=== PATIENT | male | born 1955 | race Caucasian/White ===

== ENCOUNTER 2019-02-22 06:40 | Inpatient (IN) ==
[2019-02-22] MEDS ORDERED: DOXYCYCLINE 100 MG in NS 250 ML IV ONE (07:19)
[2019-02-22] MEDS ORDERED: CLINDAMYCIN 600 MG/NS 600 MG/50 ML IVPB IV ONE (07:19)
--- NOTE | 2019-02-22 07:25 | PROVIDER DOCUMENTATION ---
HPI-Animal/Snake Bite Injury - General Chief Complaint: Animal Bite Stated Complaint: L-HAND CAT BITE Time Seen by Provider: 02/22/19 07:10 Source: patient Allergies/Adverse Reactions: Patient Allergies Allergy/AdvReac Type Severity Reaction Status Date / Time codeine Allergy NAUSEA/VOMI Verified 02/22/19 08:45 TING morphine Allergy FLUSHING Verified 02/22/19 08:45 Penicillins Allergy ANAPHYLAXIS Verified 02/22/19 08:45 Home Medications: Home Medication List Medication Instructions Recorded Confirmed Last Taken Type Fexofenadine [Jing] 180 mg PO DAILY 04/26/17 02/22/19 05/01/17 08:30 History Fluoxetine HCl [Prozac] 20 mg PO QAM 04/26/17 02/22/19 05/01/17 08:30 History Metformin [Glucophage] 500 mg PO BID CC 04/26/17 02/22/19 04/30/17 20:30 History Aspirin 81 mg PO QHS 02/22/19 02/22/19 Unknown History Cyanocobalamin/Folic Acid [Vitamin 1 ea PO DAILY 02/22/19 02/22/19 Unknown History [id number] Acid Tablet] Mv-Mn/Iron/Folic Acid/Herb 190 1 ea PO DAILY 02/22/19 02/22/19 Unknown History [Vitamin D3 Complete Caplet] - History of Present Illness-Bite Injuries Nature of Presenting Problem: 64 yo, NIDDM male w/ last tet immuniz 7 yr ago, presents w/ < 24 hrs-old cat b ite to L long digit. pw on radial aspect of digit dorsally, and ulnar aspect of the DIP jx on flexor surface. pt reports prior injection for release of trigger-finger to this digit. Review of Systems - Adult - REVIEW OF SYSTEMS - ADULT Constitutional: reports: no symptoms reported Eyes: reports: no symptoms reported Ears, Nose, Mouth & Throat: reports: no symptoms reported Cardiovascular: reports: no symptoms reported Respiratory: reports: no symptoms reported Gastrointestinal: reports: no symptoms reported Genitourinary: reports: no symptoms reported Musculoskeletal: reports: see HPI Integumentary: reports: no symptoms reported Neurological: reports: no symptoms reported Psychiatric: reports: no symptoms reported Endocrine: reports: no symptoms reported Hematologic/Lymphatic: reports: no symptoms reported Allergic/Immunologic: reports: no symptoms reported All Other Systems: Reviewed and Negative Past History - Adult - PAST MEDICAL HISTORY-ADULT Review of Records: reports: Old Records Reviewed Physical Exam-General - PHYSICAL EXAM-ADULT Initial Vital Signs Reviewed: Yes - CONSTITUTIONAL General Appearance: appears well, alert, mild distress - EYES Eyes: PERRL/EOMI, pink conjunctivae - HEAD, EARS, NOSE, MOUTH & THROAT HENMT: normocephalic/atraumatic, moist mucous membranes, normal ENT inspection - NECK Neck: supple - RESPIRATORY Respiratory: lungs clear - CARDIOVASCULAR Cardiovascular: normal peripheral pulses, regular rate, rhythm - GASTROINTESTINAL (ABDOMEN) Abdominal Exam: non tender, soft - LYMPHATIC Lymphatic: no adenopathy - MUSCULOSKELETAL Back Exam: no CVA tenderness Extremity: other (pt already has early fusiform STS and erythema, w/ intolerance to passive extension at the DIP jx sugg'x of tenosynovitis and/or joint space involvement (will discuss w/ Ortho).) Peripheral Pulses: radial (R): 2+, radial (L): 2+ - SKIN Integumentary: normal color, normal turgor, warm/dry. 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, grossly normal - PSYCHIATRIC Psych/Mental Status: normal mood/affect, normal thought content Progress - PLAN OF CARE/RESULTS Progress/Plan/Lab Results: Vital Signs - 8 hr 02/22/19 06:45 02/22/19 08:21 Temperature 97.6 F Pulse Rate 93 H Respiratory Rate 20 Blood Pressure 140/101 130/87 O2 Sat by Pulse Oximetry 99 97 Laboratory Results - last 24 hr 02/22/19 02/22/19 02/22/19 07:43 07:43 07:43 WBC 13.74 H RBC 5.62 Hgb 16.1 Hct 50.1 MCV 89.1 MCH 28.6 MCHC 32.1 L RDW Std Deviation 13.3 Plt Count 215 MPV 11.7 H Immature Gran % (Auto) 0.2 Neut % (Auto) 69.0 Lymph % (Auto) 19.7 L [place] % (Auto) 8.9 Eos % (Auto) 1.8 Baso % (Auto) 0.4 Immature Gran # (Auto) 0.03 Neut # (Auto) 9.47 H Lymph # (Auto) 2.71 [place] # (Auto) 1.22 H Eos # (Auto) 0.25 Baso # (Auto) 0.06 PT 12.7 INR 0.95 PTT (Actin FS) 28.3 Sodium 136 Potassium 4.5 Chloride 100 Carbon Dioxide 20 L Anion Gap 16 BUN 23 H Creatinine 1.0 Estimated GFR/1.73 m2 > 60 BUN/Creatinine Ratio 23 Glucose 121 H Calculated Osmolality 277 Calcium 8.9 Total Bilirubin 0.73 AST 24 ALT 21 Alkaline Phosphatase 74 Total Protein 7.2 Albumin 4.1 Globulin 3.1 Albumin/Globulin Ratio 1.3 Orders Category Date Time Status NPO Diet 02/22/19 09:09 Active HAND COMPLETE LEFT [RAD] Stat Exams 02/22/19 07:14 Completed CBC WITH DIFF [HEME] Stat Lab 02/22/19 07:43 Completed COMPREHENSIVE METABOLIC PANEL [CHEM] Stat Lab 02/22/19 07:43 Completed PROTIME WITH INR [COAG] Stat Lab 02/22/19 07:43 Completed PTT [COAG] Stat Lab 02/22/19 07:43 Completed Clindamycin 600 mg/Ns Med 02/22/19 07:19 Discontinued 600 mg in 50 ml IV NOW Doxycycline 100 mg Med 02/22/19 07:19 Active 0.9% Sodium Chloride Inj [Ns] 250 ml IV NOW Result Diagrams: 02/22/19 07:43 02/22/19 07:43 - REASSESSMENT Reassessment #1 Time Reassessed: 08:40 Status: unchanged (imaging shows no complication: Dr. Elizalde (Ortho) paged) - CONSULTS/PCP/HOSPITALIST Notification #1 *Consult/PCP/Hospitalist*: Tonio Time Discussed: 09:05 Consult Disposition: Admit (will consult, re Hospitalist to admit) #2 Consult: Nicki (Hospitalist) Time Discussed: 09:10 Consult Disposition: Admit Departure - Departure Date of Disposition Decision: 02/22/19 Time of Disposition Decision: 09:10 DIAGNOSIS: Cat bite of middle finger, Tenosynovitis Disposition: ADMITTED INPATIENT 09 Certified Medical Emergency: Emergent Condition: Stable Referrals and Follow-Ups: Cesar Reed MD [Primary Care Provider] - - Critical Care Note This patient required my direct & personal management of CC.: No Attestation - Physician/ EMILY Attestation The physician spent face to face time with patient:: Yes Advanced Practice Provider documentation review:: Supervising physician onsite and consulted in the evaluation and care of this patient. The physician did have a face to face encounter with the patient.
--- NOTE | 2019-02-22 07:38 | Diag Imaging Result Doc PS360 ---
EXAM: HAND COMPLETE LEFT 02/22/2019 HISTORY: cat bite L long digit TECHNIQUE: Left hand three views COMMENT: There is no evidence of fracture or dislocation periosteal reaction or foreign body. IMPRESSION: No acute bony abnormality. Electronically signed by Jacques Stark 02/22/2019 7:35 AM
[2019-02-22 08:01] LABS: BASO# 0.06 X1000 (0.0-0.2); BASO% 0.4 % (0.0-0.8); EOS# 0.25 X1000 (0.0-0.7); EOS% 1.8 % (0.0-10.0); HEMATOCRIT 50.1 % (42.0-52.0); HEMOGLOBIN 16.1 g/dL (14.0-18.0); IMM GRAN# 0.03 X1000 (0.0-0.04); IMM GRAN% 0.2 % (0.0-0.5); LYMPH# 2.71 X1000 (1.2-3.4); LYMPH% 19.7 % (20.5-51.1); MCH 28.6 PG (27-31); MCHC 32.1 g/dL (33-37); MCV 89.1 FL (81-99); MONO# 1.22 X1000 (0.11-0.59); MONO% 8.9 % (1.7-9.3); MPV 11.7 FL (7.4-10.4); NEUT# 9.47 X1000 (1.4-6.5); PLT 215 X1000 (130-400); RBC 5.62 XMIL (4.7-6.1); RDW 13.3 % (11.5-14.5); WBC 13.74 X1000 (4.8-10.8)
[2019-02-22 08:10] LABS: INR 0.95; PROTIME 12.7 Seconds (11.0-16.0)
[2019-02-22 08:11] LABS: PTT 28.3 Seconds (22.3-41.8)
[2019-02-22 08:24] LABS: AGAP 16; ALB/GLOB RATIO 1.3; ALBUMIN 4.1 g/dL (3.5-5.0); ALKALINE PHOSPHATASE 74 U/L (32-122); BUN 23 mg/dL (8-22); CALCIUM 8.9 mg/dL (8.8-10.2); CHLORIDE 100 mmol/L (98-107); COSMO 277; ESTIMATED GFR > 60; GLUCOSE 121 mg/dL (70-104); GOT 24 U/L (10-34); GPT 21 U/L (10-44); POTASSIUM 4.5 mmol/L (3.5-5.1); SODIUM 136 mmol/L (136-145); TCO2 20 mmol/L (25-35); TOTAL BILIRUBIN 0.73 mg/dL (0.20-1.00); TOTAL PROTEIN 7.2 g/dL (6.3-8.3)
[2019-02-22] MEDS ORDERED: ZOFRAN IV PRN (10:09)
[2019-02-22] MEDS: LEVAQUIN 500 MG/D5W 500 MG/100 ML IVPB IV SCH (13:16)
[2019-02-22] MEDS ORDERED: XYLOCAINE 1% INJ ONE (14:09)
[2019-02-22] MEDS ORDERED: DEMEROL IV ONE (14:23)
[2019-02-22] MEDS: HUMALOG SUBQ SCH ×3 (14:54→22:13)
[2019-02-22] MEDS: CLINDAMYCIN 600 MG/D5W 600 MG/50 ML IVPB IV SCH (14:58)
[2019-02-22] MEDS: NS 1,000 ML IV SCH (15:16)
--- NOTE | 2019-02-22 15:48 | HISTORY AND PHYSICAL ---
PRIMARY CARE PROVIDER: Dr. Reed. CHIEF COMPLAINT: Cat bite. HISTORY OF PRESENT ILLNESS: Mr. Gonsales is a 64-year-old gentleman who carries a past medical history of diabetes mellitus, depression, BPH, allergic rhinitis, who reports yesterday he was bitten by a cat on his left middle digit. He has some swelling and erythema and it is hard for him to bend that finger, questionable tenosynovitis in the possible joint space. The ED physician discussed this with Dr. Elizalde. We will place him on antibiotics and get orthopedics opinion. He reports no fever, no chills. No chest pain. No shortness of breath. No palpitations. No nausea, vomiting, diarrhea or symptoms. PAST MEDICAL HISTORY: Per HPI. PAST SURGICAL HISTORY: TURP, sinus surgery. Colonoscopy. ALLERGIES: Codeine, morphine and penicillin. FAMILY HISTORY: Positive for prostate cancer in father, coronary disease and hypertension. SOCIAL HISTORY: No alcohol, tobacco, or illicit drug use. PHYSICAL EXAMINATION: VITAL SIGNS: Temperature is 98.8 degrees, heart rate 70, respirations 18, blood pressure 120/84. O2 is 98% on room air. GENERAL: Mr. Gonsales is a pleasant 64-year-old gentleman who is sitting up in the bed in no acute distress. He does have some swelling to his left middle digit with some erythema. HEENT: Atraumatic, normocephalic. PERRL. NECK: Supple. Trachea midline. CARDIOVASCULAR: S1, S2 appreciated. No murmurs, gallops, rubs noted. RESPIRATORY: Lung sounds clear bilaterally. GASTROINTESTINAL: Abdomen soft, nontender, nondistended. Positive bowel sounds 4 quads. EXTREMITIES: Negative for edema. NEUROLOGIC: No focal deficits noted. DIAGNOSTIC DATA: Left hand x-ray showed no acute bone abnormality. LABORATORY DATA: White count 13, hemoglobin and hematocrit 16 and 50, platelet count is 215,000. Chemistry: Sodium 136, potassium 4.5, BUN 23, creatinine 1, blood glucose is 121. ASSESSMENT AND PLAN: 1. Left middle finger infection secondary to cat bite. Questionable tenosynovitis. The patient has been placed on antibiotics. We will continue with clindamycin and Levaquin. He will be followed up with orthopedic consult. 2. Diabetes mellitus. Continue on home regimen, sliding scale and pattern blood sugars. 3. Depression. Continue home regimen. 4. Benign prostatic hypertrophy. Continue home medications. 5. Worsened rhinitis. Continue allergy medications. 6. Further recommendation to follow physician evaluation, laboratory and diagnostic data. Dictated by LISA Cook for Grzegorz Patrick MD cc: MD Daquan Llanos MD left 3rd finger with small puncture wounds on dorsal and ventral surfaces consistent with his reported history of a cat bite. mild to moderate swelling. slightly limited flexion and extension of the distal joints. moderate pain on extension. no palpable fluid collection. we'll place him on antibiotics. if he improves, then he may not have to have surgery, but we'll get the surgeons opinion. MTDNilton
[2019-02-22] MEDS ORDERED: NORCO-5 PO PRN (18:07)
[2019-02-22] MEDS ORDERED: MORPHINE IV PRN (18:08)
[2019-02-22] MEDS: GLUCOPHAGE PO SCH (18:27)
--- NOTE | 2019-02-22 19:33 | OPERATIVE NOTE ---
PROCEDURE DATE: 02/22/2019 PREOPERATIVE DIAGNOSIS: Cat bite wound with a volar middle phalanx soft tissue infection of the left long finger. POSTOPERATIVE DIAGNOSIS: Cat bite wound with a volar middle phalanx soft tissue infection of the left long finger. PROCEDURE: Incision and drainage of the wound. SURGEON: Leonora Elizalde. ANESTHESIA: Local. COMPLICATIONS: None. PROCEDURE IN DETAIL: This is a 64-year-old male who was admitted for IV antibiotics, status post a cat bite with an area of redness and possible small soft tissue abscess over the volar aspect of the middle phalanx, and he presents for a bedside I D. Risks, benefits, and no guarantees were discussed. Risks and benefits were noted, and he is willing to proceed. He underwent a digital block with lidocaine over the base of the finger along the digital nerves. The left index finger was prepped and draped in usual sterile technique. A time-out was noted. Using a small 15 blade along the volar side of the middle phalanx, the area of the puncture wound and pustule was just gently opened. Cultures were obtained and this area opened slightly with a hemostat to allow drainage of the subcutaneous abscess. Careful examination revealed that it did not extend along the proximal phalanx or even the A2 and A1 pulleys or any evidence of significant extensor or flexor tenosynovitis. The area was left open to drain and placed in bandages. He tolerated the procedure well. We will monitor his condition. If he fails to improve, we will consider formal flexor tendon sheath debridement and irrigation in the operating room. cc: Daquan Elizalde MD
--- NOTE | 2019-02-22 20:12 | ORTHOPAEDICS CONSULTATION ---
DATE: 02/22/2019 REASON FOR CONSULTATION: Left middle finger cat bite with cellulitis. HISTORY OF PRESENT ILLNESS: This is a 64-year-old male who is overall healthy, but does have a history of type 2 diabetes, who presented to the [facility] Emergency Room after his cat bit him yesterday. Today, he presented to the ER with a swollen left middle digit with erythema and pain. He was started on empiric antibiotic therapy in the ER. Orthopedics has been consulted for management of the left middle finger. PAST MEDICAL HISTORY: 1. Type 2 diabetes mellitus. 2. Depression. 3. BPH. PAST SURGICAL HISTORY: Transurethral resection of prostate. MEDICATIONS: 1. Jing. 2. Aspirin. 3. Flomax. 4. Metformin. 5. Prozac. FAMILY HISTORY: Noncontributory. SOCIAL HISTORY: Denies tobacco, alcohol, or illicit drug use. Lives at home with his . REVIEW OF SYSTEMS: A 10 point review of systems was completed and negative except as was mentioned above in the HPI. PHYSICAL EXAMINATION: Vital signs: Temperature is 98.5 degrees, pulse 65, respirations 16, blood pressure is 114/84, and he is 100% on room air. General: He is a 64-year-old male in no acute distress. Neurological: He is alert and oriented with no focal deficits. He answers questions appropriately. HEENT: Head is atraumatic, normocephalic. Pupils equal, round, reactive to light. Cardiovascular: Regular rate and rhythm. Pulmonary: Breathing is even and nonlabored with equal chest rise. Abdomen: Appears nondistended. Extremities: Left upper extremity exam: He has no tenderness to palpation to the palm along the flexor tendon. He does have some swelling really past the PIP joint more distally. This is where a lot of his erythema is as well. The cat bite was proximal to the DIP joint. This is where most of his tenderness is. There is no drainage noted. He is able to fully flex and extend the finger. I do not suspect that the flexor tendon or the joint are involved. He has no tenderness to palpation along the flexor tendon sheath. He has good sensation. IMAGING: An x-ray reviewed and interpreted by Dr. Elizalde shows no fracture, dislocation, or obvious osteomyelitis. ASSESSMENT: Left middle finger cat bite with subcutaneous abscess. PLAN: Dr. Elizalde discussed doing a bedside irrigation and debridement with the patient, and he wished to proceed. Risks and benefits of the procedure were discussed. The patient understood and wanted to proceed. The patient tolerated the procedure well. We sent cultures to the Lab. There was not a lot of drainage. It was mostly blood. Everything was superficial. Nothing went to the joint or to the tendon sheath. We are going to leave this open. We are just going to do local wound care. Hopefully, if we give this a chance to drain and continue the intravenous antibiotics, this will resolve. Dr. Phelan will be loss prevention agent this weekend. If things look worse or do not seem to be improving, we may need to do an irrigation and debridement in the operating room with a washout. We will continue to follow him. We will continue empiric antibiotic therapy until we have the cultures back. Thank you for the consult. Dictated by LISA Salazar for Daquan Elizalde MD cc: LISA Salazar MD
[2019-02-22] MEDS: ASPIRIN PO SCH ×2 (22:11→22:16)
[2019-02-22] MEDS: DEMEROL IV PRN (22:12)
[2019-02-23] MEDS: CLINDAMYCIN 600 MG/D5W 600 MG/50 ML IVPB IV SCH ×3 (01:33→18:45)
[2019-02-23] MEDS: NS 1,000 ML IV SCH ×2 (02:09→15:08)
[2019-02-23] MEDS: DEMEROL IV PRN ×4 (02:10→14:13)
[2019-02-23 07:23] LABS: BASO# 0.02 X1000 (0.0-0.2); BASO% 0.2 % (0.0-0.8); EOS# 0.27 X1000 (0.0-0.7); EOS% 3.1 % (0.0-10.0); HEMATOCRIT 45.3 % (42.0-52.0); HEMOGLOBIN 14.8 g/dL (14.0-18.0); IMM GRAN# 0.03 X1000 (0.0-0.04); IMM GRAN% 0.3 % (0.0-0.5); LYMPH# 2.43 X1000 (1.2-3.4); LYMPH% 28.1 % (20.5-51.1); MCH 29.8 PG (27-31); MCHC 32.7 g/dL (33-37); MCV 91.1 FL (81-99); MONO# 0.83 X1000 (0.11-0.59); MONO% 9.6 % (1.7-9.3); MPV 11.7 FL (7.4-10.4); NEUT# 5.07 X1000 (1.4-6.5); NEUT% 58.7 % (42.2-75.2); PLT 170 X1000 (130-400); RBC 4.97 XMIL (4.7-6.1); RDW 13.5 % (11.5-14.5); WBC 8.65 X1000 (4.8-10.8)
[2019-02-23] MEDS ORDERED: PROZAC PO SCH (09:00)
[2019-02-23] MEDS: HUMALOG SUBQ SCH ×3 (09:58→21:13)
[2019-02-23] MEDS: GLUCOPHAGE PO SCH ×2 (16:35→16:54)
[2019-02-23] MEDS: ALLEGRA PO SCH (16:36)
[2019-02-23] MEDS: PATIENT'S OWN MED PO SCH ×2 (16:46)
[2019-02-23] MEDS: LEVAQUIN 500 MG/D5W 500 MG/100 ML IVPB IV SCH (16:47)
[2019-02-23] MEDS: NORCO-7.5 PO PRN ×2 (16:54→21:11)
--- NOTE | 2019-02-23 21:05 | PROGRESS NOTE ---
DATE: 02/23/2019 INTERVAL HISTORY: The patient with incision and drainage of infected left 3rd finger yesterday after a cat bite. Pain well-controlled, remains afebrile. No new complaints. No acute events overnight. REVIEW OF SYSTEMS: Twelve point review of systems negative as per interval history. LABORATORIES: WBC 8.6, hemoglobin 14.8, hematocrit 45.3, platelets 170,000, glucose 77. PHYSICAL EXAMINATION: Vitals: T-max 98.6 degrees, pulse 70, respirations 18, blood pressure 114/72, O2 saturation 97% on room air. General: No acute distress. HEENT: Normocephalic, atraumatic. Moist mucous membranes. No cervical adenopathy. Cardiovascular: Regular rate and rhythm. No murmurs noted. Pulmonary: Clear to auscultation bilaterally. No wheezing, rales, or rhonchi. Abdomen: Soft, nontender, nondistended. Bowel sounds positive. Extremities: Peripheral pulses intact. Left 3rd finger heavily bandaged, visible distally and appears less swollen than it was previously. No clubbing or cyanosis. Peripheral pulses intact. Neurologic: Cranial nerves grossly intact. No focal deficits identified. Psychiatric: Normal mood and affect. Awake, alert, and oriented x3. ASSESSMENT AND PLAN: 1. Left 3rd finger tenosynovitis secondary to cat bite. Status post incision and drainage at the bedside yesterday. Remains on antibiotics with Levaquin and clindamycin, which we will continue. Surgery wants to watch and re-evaluate to make sure no further surgical intervention is necessary. If he continues to improve, then can likely go home on a course of Levaquin and clindamycin by mouth. 2. Diabetes. Acceptable control on home metformin. Continue to monitor. 3. Seasonal allergies. Continue home medications.
[2019-02-23] MEDS: ASPIRIN PO SCH (21:10)
[2019-02-24] MEDS: NORCO-7.5 PO PRN ×3 (02:28→22:22)
[2019-02-24] MEDS: CLINDAMYCIN 600 MG/D5W 600 MG/50 ML IVPB IV SCH ×3 (02:29→17:25)
[2019-02-24 06:59] LABS: BASO# 0.03 X1000 (0.0-0.2); BASO% 0.4 % (0.0-0.8); EOS# 0.41 X1000 (0.0-0.7); HEMATOCRIT 45.2 % (42.0-52.0); HEMOGLOBIN 14.5 g/dL (14.0-18.0); IMM GRAN# 0.03 X1000 (0.0-0.04); IMM GRAN% 0.4 % (0.0-0.5); LYMPH# 2.81 X1000 (1.2-3.4); LYMPH% 34.2 % (20.5-51.1); MCH 29.2 PG (27-31); MCHC 32.1 g/dL (33-37); MCV 90.9 FL (81-99); MONO# 0.82 X1000 (0.11-0.59); MPV 11.2 FL (7.4-10.4); NEUT# 4.11 X1000 (1.4-6.5); PLT 169 X1000 (130-400); RBC 4.97 XMIL (4.7-6.1); RDW 13.3 % (11.5-14.5); WBC 8.21 X1000 (4.8-10.8)
[2019-02-24 07:31] LABS: AGAP 14; BUN 15 mg/dL (8-22); CALCIUM 8.4 mg/dL (8.8-10.2); CHLORIDE 102 mmol/L (98-107); COSMO 274; ESTIMATED GFR > 60; GLUCOSE 116 mg/dL (70-104); POTASSIUM 4.3 mmol/L (3.5-5.1); SODIUM 136 mmol/L (136-145); TCO2 20 mmol/L (25-35)
[2019-02-24] MEDS: NS 1,000 ML IV SCH ×2 (07:41→17:28)
[2019-02-24] MEDS: HUMALOG SUBQ SCH ×4 (07:44→21:43)
[2019-02-24] MEDS: ALLEGRA PO SCH (09:35)
[2019-02-24] MEDS: PROZAC PO SCH (09:36)
[2019-02-24] MEDS: GLUCOPHAGE PO SCH ×2 (09:36→17:25)
[2019-02-24] MEDS: PATIENT'S OWN MED PO SCH ×2 (09:39)
[2019-02-24] MEDS: LEVAQUIN 500 MG/D5W 500 MG/100 ML IVPB IV SCH (15:21)
--- NOTE | 2019-02-24 16:22 | PROGRESS NOTE ---
DATE: 02/24/2019 INTERVAL HISTORY: Patient with some intermittent pain but improving swelling of the left 3rd finger. Remains afebrile. No acute events. No new complaints. LABS: WBC 8.2, hemoglobin 14.5, hematocrit 45.2, platelets 169,000. Chemistry unremarkable . VITALS: T-max 99.8, pulse 85, respirations 20, blood pressure 116/74, O2 saturation 99% on room air. PHYSICAL EXAMINATION: General: No acute distress. Vitals as above. HEENT: Normocephalic, atraumatic. Moist mucous membranes. No cervical adenopathy. Cardiovascular: Regular rate and rhythm. No murmurs noted. Pulmonary: Clear to auscultation bilaterally. No wheezing, rales or rhonchi. Abdomen: Soft, nontender, nondistended. Bowel sounds positive. Extremities: Peripheral pulses intact. Left 3rd finger remains bandaged. Distal finger edema appears to be essentially resolved. Distal finger nontender, still little sore in the midline where they performed the I and D. No clubbing or cyanosis. Peripheral pulses intact. Neurologic: Cranial nerves grossly intact, no focal deficits identified. Psychiatric: Normal mood and affect. Awake, alert, oriented x3. ASSESSMENT AND PLAN: 1. Left 3rd finger tenosynovitis secondary to cat bite. Status post incision and drainage at the bedside 02/22. Remains on antibiotics with Levaquin and clindamycin which will continue because of his penicillin allergy. Surgery wants to watch and reevaluate tomorrow. If it looks good then may be able to go home on oral Levaquin and clindamycin. 2. Diabetes good control on home metformin. Continue to monitor. 3. Seasonal allergies. Continue home medications.
[2019-02-24] MEDS: ASPIRIN PO SCH (21:53)
[2019-02-25] MEDS: CLINDAMYCIN 600 MG/D5W 600 MG/50 ML IVPB IV SCH ×2 (00:27→08:11)
[2019-02-25] MEDS: HUMALOG SUBQ SCH ×2 (06:44→11:19)
[2019-02-25] MEDS: GLUCOPHAGE PO SCH (08:11)
[2019-02-25] MEDS: ALLEGRA PO SCH (08:11)
[2019-02-25] MEDS: PROZAC PO SCH (08:12)
--- NOTE | 2019-02-25 08:13 | PROGRESS NOTE ---
DATE: 02/25/2019 Mr. Gonsales is seen status post local I and D of the finger. On exam today, there is decreasing redness. There was no involvement in the flexor tendon sheath. He still has some residual redness around the cat bite. Cultures are not showing any significant organisms currently. At this point, I think he can be discharged home on outpatient antibiotics. I will need to follow up with him afternoon for a repeat examination. He can undergo range of motion of the finger as tolerated in the interim. cc: Daquan Elizalde MD
[2019-02-25] MEDS: PATIENT'S OWN MED PO SCH ×2 (11:32)
[2019-02-25 11:39] VITALS: BP 123/65
[2019-02-25] MEDS: LEVAQUIN 500 MG/D5W 500 MG/100 ML IVPB IV SCH (14:14)
--- NOTE | 2019-02-26 11:40 | DISCHARGE SUMMARY ---
ADMISSION DATE: 02/22/2019 DISCHARGE DATE: 02/25/2019 DISCHARGE DIAGNOSES: 1. Cat bite cellulitis and tenosynovitis of his left third finger. 2. Type 2 diabetes. CONSULTATIONS: Dr. Elizlade. PROCEDURES: Bedside I and D. HOSPITAL COURSE: Briefly, this is a 64-year-old male who was bitten by a cat in the pad of his left middle digit. He had pain and swelling. He came in for evaluation. He was placed on clindamycin and Levaquin because of a penicillin allergy. Ortho was consulted. They did a bedside irrigation and debridement. Really not much purulence was drained. Cultures even at the time of discharge are negative. He improved significantly with antibiotics. On the , he was felt stable to go home. Initial white count 13.7, went down to 8000. That was on the . Discharge diagnoses as described. DISCHARGE MEDICATIONS: Aspirin 81 daily, Jing 180 daily, metformin 500 b.i.d., Prozac 20 daily, vitamin D daily, clindamycin 300 t.i.d. for 10 days, Levaquin 500 mg daily for 10 days, [place] p.r.n. FOLLOWUP: With Dr. Elizalde. Return for pain, swelling, or fever. cc: Napoleon Pepe MD
== END 2019-02-25 15:22 | disposition home or self-care (01) | DRG 581 ==
LOC: ED 06:40 → EDIPHOLD 06:40 → OBSVTOIN 06:41 → SUATTDRO 06:41 → 4N 11:52
PROVIDERS: ATTEND Internal Medicine